=== PATIENT | male | born 1990 | race African-American/Black ===

== ENCOUNTER → 2022-01-31 | Outpatient (CLI) | payer OTHER ==
--- NOTE | 2022-01-31 16:53 | Diagnostic Imaging Report ---
EXAMINATION: US Abdomen complete. TECHNIQUE: Multiple real-time grayscale images were obtained over the right upper quadrant in various projections. HISTORY: Periumbilical pain COMPARISON: None available. FINDINGS: Pancreas: The pancreas is nonvisualized secondary to overlying bowel gas. Liver: The liver is normal in echogenicity and contour. No focal lesions are seen. The portal vein is patent with hepatopetal flow. Gallbladder and biliary tree: Nodular foci seen along the gallbladder wall without shadowing. No sonographic Che sign. There is no biliary ductal dilation. The common duct measures 0.3 cm. Kidneys: The right kidney is normal without hydronephrosis. The left kidney is normal without hydronephrosis. Spleen: The spleen is normal. Aorta and IVC: The visualized aorta and inferior vena cava are normal. Fluid: No ascites is seen. Other: Within the region of concern of the anterior abdominal wall, there is a hernia containing loops of bowel measuring up to 6.9 cm. Peristalsis is seen within the hernia. There is movement during Valsalva. IMPRESSION: 1. Ventral abdominal wall hernia containing multiple peristalsing loops of bowel. 2. Mild level non-shadowing foci along the gallbladder wall which could represent polyps, non-shadowing stones or tumefactive sludge. Consider gallbladder ultrasound followup in one year. Dictated by: Dictated on workstation # [id number]
== END ==
LOC: RAD 09:55
PROVIDERS: ATTEND Internal Medicine Nephrology
DX: K43.9 Ventral hernia without obstruction or gangrene (principal)
CPT/HCPCS: 76700